=== PATIENT | male | born 1970 | race Caucasian/White ===

== ENCOUNTER 2023-07-22 08:50 | Day surgery (SDC) | payer BC ==
[~2023-07-22] VITALS: Ht 182.9 cm; Wt 163.3 kg
[~2023-07-22 08:50] MED LIST: CEFAZOLIN SOD 2 GM in D5W 50 ML IV ONE
[2023-07-22] MEDS ORDERED: BUPIVACAINE /PF 0.25% 30 ML VIAL INJ ONE (11:03)
[2023-07-22] MEDS ORDERED: HYDROmorphone 2 MG/ML VIAL ONE (11:03)
[2023-07-22] MEDS ORDERED: METOCLOPRAMIDE HCL 10 MG/2 ML VIAL ONE (11:03)
[2023-07-22] MEDS ORDERED: LR 1,000 ML IV.SOLN IV ONE (11:03)
[2023-07-22] MEDS ORDERED: DEXAMETHASONE SOD PHOSPHATE 4 MG/ML VIAL ONE (11:03)
[2023-07-22] MEDS ORDERED: fentaNYL CITRATE/PF 100 MCG/2 ML AMP ONE (11:03)
[2023-07-22] MEDS ORDERED: SEVOFLURANE 15 MIN GAS INH ONE (11:03)
[2023-07-22] MEDS ORDERED: KETOROLAC TROMETHAMINE 30 MG VIAL ONE (11:03)
[2023-07-22] MEDS ORDERED: ONDANSETRON HCL 4 MG/2 ML VIAL ONE ×2 (11:03→13:39)
[2023-07-22] MEDS ORDERED: MIDAZOLAM HCL 2 MG/2 ML VIAL (VERSED) ONE (11:03)
[2023-07-22] MEDS ORDERED: PROPOFOL 200MG/ 20ML VIAL (DIPRIVAN) IV ONE (11:03)
[2023-07-22 11:05] VITALS: O2SAT 98
[2023-07-22] MEDS ORDERED: HYDROcodone/ACETAMIN 5-325 MG TAB (NORCO/ VICODIN) PO PRN ×2 (12:00)
[2023-07-22] MEDS ORDERED: D5/0.45 NS 1,000 ML IV SCH (12:00)
[2023-07-22] MEDS ORDERED: KETOROLAC TROMETHAMINE 30 MG VIAL IVP PRN (12:30)
[2023-07-22] MEDS ORDERED: LR 1,000 ML IV SCH (12:30)
[2023-07-22] MEDS ORDERED: ONDANSETRON HCL 4 MG/2 ML VIAL IVP PRN (12:30)
[2023-07-22] MEDS ORDERED: MEPERIDINE HCL/PF 25 MG/ML DISP.SYRIN IVP PRN (12:30)
[2023-07-22] MEDS ORDERED: HYDROmorphone 1 MG/ML INJ. CARTRIDGE IVP PRN ×2 (12:30)
[2023-07-22] MEDS ORDERED: HYDROmorphone 1 MG/ML INJ. CARTRIDGE ONE (12:49)
[2023-07-22] MEDS ORDERED: HYDROcodone/ACETAMIN 5-325 MG TAB (NORCO/ VICODIN) ONE (13:39)
[2023-07-22 14:36] VITALS: BP_SYST 122; PULSE 80; RESP 20
== END 2023-07-22 14:36 | disposition home or self-care (01) ==
LOC: SDS 08:50 → SMU 08:51 → SDS 14:36
PROVIDERS: ATTEND Colon & Rectal Surgery
DX: K60.3 Anal fistula (principal); I10 Essential (primary) hypertension; G47.33 Obstructive sleep apnea (adult) (pediatric); E66.01 Morbid (severe) obesity due to excess calories; Z68.42 Body mass index [BMI] 45.0-49.9, adult; Z82.3 Family history of stroke; Z98.84 Bariatric surgery status; Z79.899 Other long term (current) drug therapy; Z88.5 Allergy status to narcotic agent; Z88.8 Allergy status to other drugs, medicaments and biological substances
CPT/HCPCS: 87081; 46270; J3490; J0690; J1100; J1885; J2765; J3465; J2405; J2704; J3010; J1170 ×2; J7060; J7120